=== PATIENT | male | born 1995 | race African-American/Black ===

== ENCOUNTER 2017-08-20 11:32 | Emergency (ER) | payer SELFPAY ==
[2017-08-20] MEDS ORDERED: Acetaminophen 500 MG TAB ONE (11:50)
--- NOTE | 2017-08-20 12:50 | RAD ---
CHEST 2 VIEWS: Date: 08/20/17 HISTORY: Cough and congestion. Headache. FINDINGS: No comparison. The cardiac silhouette and pulmonary vasculature are unremarkable. Mediastinum is midline. There is no confluent air space consolidation, pneumothorax, or pleural fluid apparent. IMPRESSION: No active cardiopulmonary abnormalities are demonstrated. POS: [facility]
== END 2017-08-20 12:48 | disposition home or self-care (01) ==
LOC: ERS 11:32
DX: J06.9 Acute upper respiratory infection, unspecified (principal); J45.909 Unspecified asthma, uncomplicated; F17.210 Nicotine dependence, cigarettes, uncomplicated
CPT/HCPCS: 71020; 94640; 99406; J7620

== ENCOUNTER 2021-12-18 12:23 | Emergency (ER) | payer SELFPAY ==
[2021-12-18] MEDS ORDERED: Ketorolac Tromethamine 30 MG/ML VIAL ONE (14:27)
== END 2021-12-18 14:38 | disposition home or self-care (01) ==
LOC: ERS 12:23
DX: R07.89 Other chest pain (principal); J45.909 Unspecified asthma, uncomplicated
CPT/HCPCS: 94799; 96372; J1885